=== PATIENT | male | born 1965 | race Caucasian/White ===

== ENCOUNTER 2019-08-15 14:20 | Emergency (ER) | payer OTHER ==
[~2019-08-15] VITALS: Ht 190.5 cm; Wt 104.3 kg
[~2019-08-15 14:20] MED LIST: COZAAR 25 MG TA25 MG; FLOMAX0.4 MG PO; PERCOCET 5-3251 EACH PO; ZOFRAN4 MG PO
[2019-08-15] MEDS ORDERED: LIPITOR10 MG PO (14:31)
[2019-08-15 14:56] LABS: URINE BILIRUBIN NEGATIVE (Negative); URINE BLOOD 1+ (Negative); URINE CLARITY CLEAR; URINE COLOR YELLOW; URINE GLUCOSE-RANDOM NEGATIVE (Negative); URINE KETONES NEGATIVE (Negative); URINE LEUKOCYTES-REFLEX NEGATIVE (Negative); URINE NITRITE-REFLEX NEGATIVE (Negative); URINE PROTEIN NEGATIVE (Negative); URINE SPECIFIC GRAVITY 1.025 (1.005-1.030); URINE UROBILINOGEN 0.2 E.U./dl (0.2-1.0)
[2019-08-15 14:56] LABS: ABSOLUTE BASOPHILS 0.1 thou/uL (0.0-0.2); ABSOLUTE EOSINOPHILS 0.1 thou/uL (0.0-0.7); ABSOLUTE LYMPHOCYTES 2.2 thou/uL (0.8-5.3); ABSOLUTE MONOCYTES 0.7 thou/uL (0.0-1.2); ABSOLUTE NEUTROPHILS 9.3 thou/uL (1.6-8.1); BASOPHILS 0.4 %; EOSINOPHILS 0.5 %; HEMATOCRIT 42.2 % (42.0-52.0); HEMOGLOBIN 14.3 gm/dL (14.0-18.0); MCH 31.4 pg (26.0-34.0); MCHC 33.8 g/dL (28.0-37.0); MCV 93.1 fL (80.0-100.0); MONOCYTES 5.7 %; MPV 8.2 fl. (7.2-11.1); NUCLEATED RBCS 0 /100WBC; PLATELET COUNT* 231 thou/uL (150-400); POLYS 75.4 %; RBC 4.54 mil/uL (4.50-6.00); RDW-CV 13.4 % (10.5-14.5); WBC 12.3 thou/uL (4.0-11.0)
[2019-08-15 15:03] LABS: SQUAMOUS 0-3 Few /LPF (0-3)
[2019-08-15 15:04] LABS: BACTERIA-REFLEX 1-9 Few /HPF (None Seen); CASTS None Seen /LPF (None Seen); CRYSTALS None Seen /LPF (None Seen); MUCUS 0-3 Light strn/LPF (None Seen); URINE RBC 0-2 Rare /HPF (0-2); URINE WBC-REFLEX None Seen /HPF (0-5)
[2019-08-15 15:04] LABS: CALCIUM 8.6 mg/dL (8.5-10.1); CREATININE 1.3 mg/dL (0.6-1.3); POTASSIUM 4.3 mmol/L (3.5-5.1)
[2019-08-15 15:14] LABS: ALBUMIN 4.3 g/dL (3.4-5.0); TOTAL BILIRUBIN 0.5 mg/dL (<0.1-1.0); TOTAL PROTEIN 7.4 g/dL (6.4-8.2)
[2019-08-15] MEDS ORDERED: FLOMAX0.4 MG PO (16:12)
[2019-08-15] MEDS ORDERED: CIPRO500 MG PO (16:12)
[2019-08-15] MEDS ORDERED: ONDANSETRON ODT4 MG PO (16:12)
[2019-08-15] MEDS ORDERED: PERCOCET 5-3251 EACH PO ×2 (16:12→16:28)
[2019-08-15 16:20] VITALS: BP 120/85
== END 2019-08-15 16:20 | disposition home or self-care (01) ==
LOC: M.ERS 14:20
PROVIDERS: Physician Assistant
DX: N20.0 Calculus of kidney (principal); Z79.899 Other long term (current) drug therapy